=== PATIENT | female | born 1965 | race Caucasian/White ===

== ENCOUNTER 2019-02-04 07:15 | Day surgery (SDC) | payer BC ==
[2019-02-04] MEDS ORDERED: MIDAZOLAM HCL 5 MG/5 ML VIAL ONE ×2 (07:37→07:38)
[2019-02-04] MEDS ORDERED: MEPERIDINE HCL/PF 100 MG/ML AMP ONE (07:37)
[2019-02-04] MEDS ORDERED: SIMETHICONE 40 MG/0.6 ML ML ONE (07:38)
[2019-02-04 09:24] VITALS: BP_SYST 114
== END 2019-02-04 10:50 | disposition home or self-care (01) ==
LOC: SMU 07:15 → SDS 07:15
PROVIDERS: ATTEND Internal Medicine Gastroenterology
DX: R10.9 Unspecified abdominal pain (principal); K62.1 Rectal polyp; J45.909 Unspecified asthma, uncomplicated
CPT/HCPCS: 45380; 88305; 99152; G0378; J2175; J2250